=== PATIENT | female | born 1940 | race Caucasian/White ===

== ENCOUNTER 2023-03-16 09:35 | Inpatient (IN) | payer MEDICARE, BC, SELFPAY ==
[2023-03-16] VITALS (13 sets, daily range): BP systolic 98–136; BP diastolic 46–59; PULSE 69–92; RESP 18–94; TEMP 36.6–36.7; O2SAT 2–97; BMI 14.8; BMI 15.4
--- NOTE | 2023-03-16 10:03 | XR_ITS ---
FINAL REPORT CLINICAL HISTORY: Shortness of breath COMPARISON: None FINDINGS: Two views of the chest were obtained. The heart size and pulmonary vascularity are within normal limits. The mediastinum is normal. The lungs are hyperinflated consistent with COPD. There are small pleural effusions. There is no pneumothorax. The bony thorax is intact. IMPRESSION: Hyperinflation of the lungs, consistent with COPD. Small pleural effusions. Reviewed, Interpreted and Dictated by Michael Mccracken III, MD Transcribed by Courtney Bishop Authenticated and [facility]
--- NOTE | 2023-03-16 10:06 | HMH.EDGENADL ---
Discharge Plan Disposition Patient Disposition: Still a Patient Clinical Impressions Clinical Impression: Acute hypoxemic respiratory failure, Hypokalemia, Hypomagnesemia Discharge ED Provider: Malena Vasquez General Adult HPI General Chief complaint: Weakness Stated complaint: low oxygen Time Seen by Provider: 03/16/23 09:38 History of Present Illness HPI narrative: This patient is an 82-year-old female with a history of gastroparesis, recent femoral fracture 3 months ago who [facility], and COPD on 1 L nasal cannula at night presented to the emergency department for evaluation with concern for an episode today in which she dropped her blood pressure. Her daughter reports that she deals with chronically low blood pressure and was supposed to go see a puddler pile driving with [facility] in [place] today for this. She became acutely weak and they checked a pressure, which was 60/30 with a home blood pressure cuff. They also checked her oxygen saturation, which they noted was low. They put her on 2 L nasal cannula and brought her in for evaluation. The patient states that right now, she is feeling at her baseline. She did feel acutely weak and fatigued earlier with this episode, however that has since resolved. Of note, they state that she was suffering from bilateral lower extremity swelling, for which she was put on Lasix. Her daughter notes that she has had a significant amount of urine output and has not been taking in quite as many liquids. She is concerned she may be dehydrated. Patient denies any recent fevers, chills, shortness of breath, chest pain, sore throat, congestion, abdominal pain, nausea, vomiting, changes in bowel movements, rashes, or swelling. She does have issues with chronic cough. Related Data Home Medications Medication Instructions Recorded Confirmed escitalopram oxalate 20 mg tablet 20 mg PO DAILY Mood 03/16/23 03/16/23 furosemide 40 mg tablet 40 mg PO DAILY swelling 03/16/23 03/16/23 hydrocodone 5 mg-acetaminophen 325 1 tab PO NEEDED PRN Pain 03/16/23 03/16/23 mg tablet ibandronate 150 mg tablet 150 mg PO MONTHLY Osteoporosis 03/16/23 03/16/23 levothyroxine 150 mcg tablet 150 mcg PO DAILY thyroid 03/16/23 03/16/23 (Synthroid) midodrine 5 mg tablet 5 mg PO TID High Blood Pressure 03/16/23 03/16/23 mirtazapine 15 mg tablet 15 mg PO HS Mood 03/16/23 03/16/23 ondansetron HCl 4 mg tablet 4 mg PO Q8H Nausea And Vomiting 03/16/23 03/16/23 pantoprazole 40 mg tablet,delayed 40 mg PO BID Acid Reflux 03/16/23 03/16/23 release promethazine 25 mg tablet 25 mg PO NEEDED PRN Nausea And 03/16/23 03/16/23 Vomiting Allergies Allergy/AdvReac Type Severity Reaction Status Date / Time No Known Allergies Allergy Verified 03/16/23 10:08 [facility] Disclaimer: The information contained in this section may have been updated after the patient was seen, as this information can be updated by other users. Social History Smoking Status: Current every day smoker alcohol intake: never current occupational status: employed Travel in the last 8 weeks: None ROS Obtained: Yes All systems reviewed & no additional complaints except as documented Physical Exam General General appearance: alert and in no apparent distress Comment: Thin, frail Head Head exam: atraumatic and normocephalic Eye Eye exam: Present normal appearance, PERRL and EOMI ENT ENT exam: Present normal exam, normal oropharynx, mucous membranes dry and normal external ear exam Neck Neck exam: Present normal inspection, full ROM and trachea midline; Absent tenderness Chest Chest inspection: Present normal inspection and symmetric chest wall rise; Absent tenderness Respiratory Respiratory exam: Present other (Bilateral rhonchi in the bases with scattered wheezing. 87-88% on room air requiring supplemental oxygen with 2 L nasal cannula.); Abse
--- NOTE | 2023-03-16 10:09 | PC.NURSE ---
notified RT of vbg order
[2023-03-16 10:13] LABS: Basophils % 0.2 % (0.1-2.0); Eosinophils # 0.2 K/mm3 (0.0-0.4); Eosinophils % 1.9 % (0.1-12.0); Hematocrit 39.3 % (37.0-47.0); Hemoglobin 12.3 g/dL (12.2-16.2); Lymphocytes # 1.5 K/mm3 (0.7-4.5); Lymphocytes % 15.6 % (10-50); Mean Corpuscular HGB Conc 31.4 g/dL (31.8-35.4); Mean Corpuscular Hemoglobin 29.9 pg (27.0-31.2); Mean Corpuscular Volume 95.3 fl (81-99); Mean Platelet Volume 9.4 fl (7.4-10.4); Monocytes # 0.6 K/mm3 (0.1-1.0); Monocytes % 6.3 % (1.7-9.3); Neutrophils # 7.3 K/mm3 (1.8-7.8); Neutrophils % 76.1 % (37.0-80.0); Platelet Count 306 K/mm3 (142-424); Red Blood Count 4.12 M/mm3 (4.20-5.40); Red Cell Distribution Width 13.6 % (11.5-17.5); White Blood Count 9.6 K/mm3 (4.8-10.8)
--- NOTE | 2023-03-16 10:16 | PC.NURSE ---
PT TO XR
[2023-03-16 10:17] LABS: Alanine Aminotransferase 19 U/L (12-78); Albumin Level 3.6 g/dl (3.5-5.0); Albumin/Globulin Ratio 1.2 (1.1-1.8); Alkaline Phosphatase 99 U/L (38-126); Aspartate Amino Transferase 29 U/L (14-36); Bilirubin,Total 0.6 mg/dl (0.2-1.3); Blood Urea Nitrogen 14 mg/dl (7-17); Calcium 9.2 mg/dl (8.4-10.2); Chloride 98 mmol/L (98-107); Creatinine Clearance Estimated 29 mL/min (50-200); Estimated Glomerular Filt Rate 69 ml/min (>60); GFR (African American) 83 ML/MIN (>60); Glucose 129 mg/dl (74-100); Magnesium 1.4 mg/dl (1.6-2.3); Sodium 146 mmol/L (136-145); Total Protein,Serum 6.6 g/dl (6.3-8.2)
[2023-03-16 10:19] LABS: VBG Base Excess 7.9 mmol/L (-2.4-2.3); VBG HCO3 32.9 mmol/L (23-30); VBG Oxygen Saturation 96.8 % (50-70); VBG PH 7.39 mmol/L (7.31-7.41); VBG PO2 88.6 mmol/L (28-40); VBG Total CO2 34.6 mmol/L (23-27)
[2023-03-16 10:22] LABS: VBG PCO2 55.4 mmol/L (35-51)
[2023-03-16 10:23] LABS: D-Dimer 1.56 ug/mL (0.0-0.5)
[2023-03-16 10:24] LABS: Anion Gap 10.8 mEq/L (5-15); Carbon Dioxide 40 mmol/L (22.0-30.0)
[2023-03-16 10:28] LABS: Potassium 2.8 mmoL/L (3.5-5.1)
[2023-03-16 10:30] LABS: NT Pro Brain Natriuretic Pep. 1910 pg/mL (0-450); Troponin I 0.04 ng/ml (0.00-0.034)
[2023-03-16 10:34] LABS: T4 (Thyroxine) 20.9 ug/dl (5.53-11.0)
--- NOTE | 2023-03-16 10:34 | CT_ITS ---
FINAL REPORT TECHNIQUE: Axial CT images were performed from the lung apices through the upper abdomen. Coronal reformats were submitted. This study was performed with techniques to keep radiation doses as low as reasonably achievable (ALARA). Individualized dose reduction techniques using automated exposure control or adjustment of mA and/or kV according to the patient's size were employed. CLINICAL HISTORY: SOA, elevated d-dimer FINDINGS: There is lack of IV contrast, pulmonary embolism or dissection can not be excluded on this noncontrast exam. There are moderate vascular calcifications. There is no axillary adenopathy. There is no hilar or mediastinal mass or adenopathy. Heart size is normal. There is no pericardial or pleural effusion. No suspicious infiltrate or nodule is identified on lung window images. There is moderate emphysema. Moderate scarring is identified. There are calcified granulomas bilaterally. There is a small left diaphragmatic hernia containing fat. There is a small nonobstructing left renal stone. IMPRESSION: No acute cardiopulmonary process. Reviewed, Interpreted and Dictated by Michael Mccracken III, MD Transcribed by Erika Hendrix Authenticated and [facility]
--- NOTE | 2023-03-16 10:47 | PC.NURSE ---
pt to ct
[2023-03-16 10:48] LABS: Thyroid Stimulating Hormone < 0.02 uIU/mL (0.465-4.68)
[2023-03-16 10:59] LABS: Lactic Acid 1.4 mmol/L (0.7-2.1)
--- NOTE | 2023-03-16 11:00 | PC.NURSE ---
PT RETURNED FROM CT, PRINCIPAL SOFTWARE ENGINEER REPORT IV INFILTRATED.
--- NOTE | 2023-03-16 11:36 | ECG_ITS ---
APPROVED REPORT Exam: Resting ECG HR:71 bpm ECG Measurements Heart Rate 71 AXES IN 139 P 100 QRSd 64 QRS 74 QT 453 T 78 QTc 476 Conclusion SINUS RHYTHM SEPTAL MYOCARDIAL INFARCTION , OF INDETERMINATE AGE [40+ ms Q WAVE IN V1/V2] ABNORMAL ECG UNCONFIRMED REPORT Electronically signed by : Abdi Tang MD 03/17/2023 08:40:44
--- NOTE | 2023-03-16 12:17 | CT_ITS ---
FINAL REPORT CLINICAL HISTORY: elevated d-dimer FINDINGS: Thin section axial CT images of the chest were obtained with contrast. 3D reformatted images were also obtained. This study was performed with techniques to keep radiation doses as low as reasonably achievable (ALARA). Individualized dose reduction techniques using automated exposure control or adjustment of mA and/or kV according to the patient''s size were employed. There is no evidence of pulmonary embolism. There is no evidence of thoracic aortic aneurysm or dissection. There are small mediastinal nodes. There is no evidence of pulmonary mass or nodule. No localized inflammatory process is seen within the lungs. There is moderate emphysema. Mild scarring is noted. Limited images of the upper abdomen are unremarkable. IMPRESSION: No evidence of pulmonary embolism. No mass or localized inflammatory process. Reviewed, Interpreted and Dictated by Michael Mccracken III, MD Transcribed by Erika Hendrix Authenticated and [facility]
--- NOTE | 2023-03-16 12:45 | PC.NURSE ---
PT TO CT
--- NOTE | 2023-03-16 13:27 | PC.NURSE ---
REMA WOLF speaking with hospitalist
[2023-03-16 14:30] LABS: Troponin I 0.04 ng/ml (0.00-0.034)
--- NOTE | 2023-03-16 14:43 | PC.NURSE ---
report called to serge riley on second floor at this time. states will come get pt
--- NOTE | 2023-03-16 14:43 | PC.NURSE ---
received report from Teresa ROJAS
--- NOTE | 2023-03-16 14:52 | EXP.HP ---
History of Present Illness *Admission Date: 03/16/23 *Reason for visit:: hypoxia *History of present illness: Kate David is an 82 year old female with a past medical history of hypothyroidism, chronic hypotension on midodrine, copd on prn albuterol only, cigarette nicotine dependence and a recent femoral fracture 3 months ago. The patient presented to the ED with her daughter Michelle Ji because of low oxygen saturations. Michelle states that over the past few weeks she's had a productive cough and more wheezing than usual. The patient continues to smoke cigarettes, approximately 1 pack a day. No fevers or pain. The patient denies any shortness of breath at rest but does get winded with minimal exertion. [facility] Disclaimer: The information contained in this section may have been updated after the patient was seen, as this information can be updated by other users. Social History (Updated 03/16/23 @ 16:35 by Malena Vasquez DO) Smoking Status: Current every day smoker alcohol intake: never current occupational status: employed Travel in the last 8 weeks: None Review of Systems Review of Systems Review of systems:: pertinent systems reviewed and negative unless documented below Constitutional Constitutional: Reports lethargy *Cardiovascular Cardiovascular: Reports dyspnea on exertion *Respiratory Respiratory: Reports cough (productive), Reports dyspnea on exertion and Reports wheezing *Gastrointestinal Gastrointestinal: Reports other (early satiety) Allergic/Immunologic Allergic/Immunologic: Reports wheezing Meds Home Medications and Allergies Home Medications Medication Instructions Recorded Confirmed Type escitalopram oxalate 20 mg tablet 20 mg PO DAILY Mood 03/16/23 03/16/23 History furosemide 40 mg tablet 40 mg PO DAILY swelling 03/16/23 03/16/23 History hydrocodone 5 mg-acetaminophen 325 1 tab PO NEEDED PRN Pain 03/16/23 03/16/23 History mg tablet ibandronate 150 mg tablet 150 mg PO MONTHLY Osteoporosis 03/16/23 03/16/23 History levothyroxine 150 mcg tablet 150 mcg PO DAILY thyroid 03/16/23 03/16/23 History (Synthroid) midodrine 5 mg tablet 5 mg PO TID High Blood Pressure 03/16/23 03/16/23 History mirtazapine 15 mg tablet 15 mg PO HS Mood 03/16/23 03/16/23 History ondansetron HCl 4 mg tablet 4 mg PO Q8H Nausea And Vomiting 03/16/23 03/16/23 History pantoprazole 40 mg tablet,delayed 40 mg PO BID Acid Reflux 03/16/23 03/16/23 History release promethazine 25 mg tablet 25 mg PO NEEDED PRN Nausea And 03/16/23 03/16/23 History Vomiting New Prescriptions to Start Prescriptions: Allergies Allergy/AdvReac Type Severity Reaction Status Date / Time No Known Allergies Allergy Verified 03/16/23 10:08 Exam Data for Last 24 hours Vital signs and Labs for Last 24 Hours: Temp Pulse Resp BP Pulse Ox O2 Del Method O2 Flow Rate 98.0 F 81 18 136/58 L 94 L Nasal Cannula 2 03/16/23 09:35 03/16/23 14:30 03/16/23 14:30 03/16/23 14:30 03/16/23 14:30 03/16/23 11:00 03/16/23 11:00 Laboratory Results - last 24 hr 03/16/23 09:59: WBC 9.6, RBC 4.12 L, Hgb 12.3, Hct 39.3, MCV 95.3, MCH 29.9, MCHC 31.4 L, RDW 13.6, Plt Count 306, MPV 9.4, Neut % (Auto) 76.1, Lymph % (Auto) 15.6, [place] % (Auto) 6.3, Eos % (Auto) 1.9, Baso % (Auto) 0.2, Neut # (Auto) 7.3, Lymph # (Auto) 1.5, [place] # (Auto) 0.6, Eos # (Auto) 0.2, Baso # (Auto) 0.0, D-Dimer 1.56 H, Sodium 146 H, Potassium 2.8 L*, Chloride 98, Carbon Dioxide 40 H, Anion Gap 10.8, BUN 14, Creatinine 0.80, Estimated Creat Clear 29, Estimated GFR 69, Est GFR ( Amer) 83, Glucose 129 H, Calcium 9.2, Magnesium 1.4 L, Total Bilirubin 0.6, AST 29, ALT 19, Alkaline Phosphatase 99, Troponin I 0.04 H, NT-Pro-B Natriuret Pep 1910 H, Total Protein 6.6, Albumin 3.6, Globulin 3.0, Albumin/Globulin Ratio 1.2, TSH < 0.02 L, Thyroxine (T4) 20.9 H 03/16/23 10:03: VBG pH 7.39, VBG pCO2 55.4 H, VBG pO2 88.6 H, VBG HCO3 32.9 H, VBG Total CO2 34.6 H,
--- NOTE | 2023-03-16 15:17 | HMH.PHAINT1 ---
Pharmacy Intervention Comments: Medication history complete, home medications verified with fill history and list from patient. - Rhina Nuñez, PharmD Candidate 2023
--- NOTE | 2023-03-16 16:32 | PC.NURSE ---
DNR SIGNED AND ON THE CHART. FAMILY PRESENT AT THE TIME. SIGNED BY DR GOMEZ.
[2023-03-16 17:25] LABS: Troponin I 0.03 ng/ml (0.00-0.034)
--- NOTE | 2023-03-16 18:46 | PC.NURSE ---
no pain reported thus far. purwick in place. awaiting urine void and will send to lab when available. pt is incontinent and has been changed as needed. bed in lowest position. call light within reach. vss. no questions or concerns voiced.
[2023-03-17] VITALS (10 sets, daily range): BP systolic 103–130; BP diastolic 45–60; PULSE 70–101; RESP 16–20; TEMP 36.7–37; O2SAT 92–97; BMI 15.3
[2023-03-17 03:31] LABS: Microscopic, Urine URINE MICROSCOPIC (MICROSCOPIC)
[2023-03-17 03:32] LABS: Appearance,Urine CLEAR (Clear); Bilirubin,Urine Negative (Negative); Blood, Urine TRACE-I (Negative); Color,Urine YELLOW (Yellow); Glucose,Urine (UA) Negative (Negative); Ketones,Urine Negative (Negative); Leukocyte Esterase,Urine TRACE (Negative); Nitrate,Urine POSITIVE (Negative); PH,Urine 5.5 (5.0-8.5); Protein,Urine TRACE (Negative)
[2023-03-17 04:08] LABS: Bacteria,Urine 3+ /lpf
[2023-03-17 07:03] LABS: Eosinophils % 0.7 % (0.1-12.0); Hematocrit 36.2 % (37.0-47.0); Hemoglobin 11.2 g/dL (12.2-16.2); Lymphocytes # 0.7 K/mm3 (0.7-4.5); Lymphocytes % 13.6 % (10-50); Mean Corpuscular Hemoglobin 29.9 pg (27.0-31.2); Mean Corpuscular Volume 96.4 fl (81-99); Mean Platelet Volume 9.9 fl (7.4-10.4); Monocytes # 0.2 K/mm3 (0.1-1.0); Monocytes % 3.8 % (1.7-9.3); Neutrophils # 4.4 K/mm3 (1.8-7.8); Neutrophils % 81.8 % (37.0-80.0); Platelet Count 218 K/mm3 (142-424); Red Blood Count 3.75 M/mm3 (4.20-5.40); Red Cell Distribution Width 13.6 % (11.5-17.5); White Blood Count 5.4 K/mm3 (4.8-10.8)
--- NOTE | 2023-03-17 07:34 | EXP.PN ---
Subjective *Date: 03/17/23 *Time: 19:16 Interval history: No dyspnea. She does have a cough but it hasn't been productive. no pain. Exam Data for Last 24 hours Vital signs and Labs for Last 24 Hours: Temp Pulse Resp BP Pulse Ox O2 Del Method O2 Flow Rate 98.0 F 70 18 116/60 92 L Nasal Cannula 2 03/17/23 00:00 03/17/23 06:17 03/17/23 00:00 03/17/23 00:00 03/17/23 06:17 03/17/23 06:39 03/17/23 06:39 Laboratory Results - last 24 hr 03/16/23 09:59: WBC 9.6, RBC 4.12 L, Hgb 12.3, Hct 39.3, MCV 95.3, MCH 29.9, MCHC 31.4 L, RDW 13.6, Plt Count 306, MPV 9.4, Neut % (Auto) 76.1, Lymph % (Auto) 15.6, [place] % (Auto) 6.3, Eos % (Auto) 1.9, Baso % (Auto) 0.2, Neut # (Auto) 7.3, Lymph # (Auto) 1.5, [place] # (Auto) 0.6, Eos # (Auto) 0.2, Baso # (Auto) 0.0, D-Dimer 1.56 H, Sodium 146 H, Potassium 2.8 L*, Chloride 98, Carbon Dioxide 40 H, Anion Gap 10.8, BUN 14, Creatinine 0.80, Estimated Creat Clear 29, Estimated GFR 69, Est GFR ( Amer) 83, Glucose 129 H, Calcium 9.2, Magnesium 1.4 L, Total Bilirubin 0.6, AST 29, ALT 19, Alkaline Phosphatase 99, Troponin I 0.04 H, NT-Pro-B Natriuret Pep 1910 H, Total Protein 6.6, Albumin 3.6, Globulin 3.0, Albumin/Globulin Ratio 1.2, TSH < 0.02 L, Thyroxine (T4) 20.9 H 03/16/23 10:03: VBG pH 7.39, VBG pCO2 55.4 H, VBG pO2 88.6 H, VBG HCO3 32.9 H, VBG Total CO2 34.6 H, VBG O2 Saturation 96.8 H, VBG Base Excess 7.9 H 03/16/23 10:37: Lactate 1.4 03/16/23 13:30: Troponin I 0.04 H 03/16/23 16:50: Troponin I 0.03 03/17/23 01:49: Urine Color Yellow, Urine Appearance Clear, Urine pH 5.5, Ur Specific [place] 1.020, Urine Protein Trace, Urine Glucose (UA) Negative, Urine Ketones Negative, Urine Blood Trace-i, Urine Nitrate Positive, Urine Bilirubin Negative, Urine Urobilinogen 1.0, Ur Leukocyte Esterase Trace, Urine RBC 5-10, Urine WBC 10-20, Ur Squamous Epith Cells 3-5, Urine Bacteria 3+ 03/17/23 06:33: WBC 5.4 D, RBC 3.75 L, Hgb 11.2 L, Hct 36.2 L, MCV 96.4, MCH 29.9, MCHC 31.0 L, RDW 13.6, Plt Count 218 D, MPV 9.9, Neut % (Auto) 81.8 H, Lymph % (Auto) 13.6, [place] % (Auto) 3.8, Eos % (Auto) 0.7, Baso % (Auto) 0.0 L, Neut # (Auto) 4.4, Lymph # (Auto) 0.7, [place] # (Auto) 0.2, Eos # (Auto) 0.0, Baso # (Auto) 0.0 I & O for Last 24 hours: Intake & Output 03/14/23 03/15/23 03/16/23 03/17/23 23:59 23:59 23:59 23:59 Intake Total 570 / 830 260 / 260 Output Total Balance 570 / 830 250 / 250 Weight 43.346 kg Constitutional Constitutional: no acute distress *Routine HEENT Exam Head: Present normocephalic Eye: Present EOMI and PERRL ENT: Present mucous membranes moist *Routine Neck Exam Neck: Present supple; Absent lymphadenopathy *Routine Respiratory Exam Respiratory: Present CTA bilaterally *Routine Cardiovascular Exam Cardiovascular: Present RRR *Routine Abdominal Exam Abdominal: Present soft and normoactive bowel sounds; Absent tenderness *Routine Extremities Exam Extremities: Absent cyanosis, clubbing or edema *Routine Skin Exam Skin: Present warm; Absent rash *Routine Neurological Exam Neurological: Present alert and oriented X3 Assessment and Plan *Assessment and plan (1) Acute hypoxemic respiratory failure: Status: Acute Category: Medical Code(s): J96.01 - Acute respiratory failure with hypoxia (2) Hypomagnesemia: Status: Acute Category: Medical Code(s): E83.42 - Hypomagnesemia (3) Hypokalemia: Status: Acute Category: Medical Code(s): E87.6 - Hypokalemia (4) COPD exacerbation: Status: Acute Category: Medical Code(s): J44.1 - Chronic obstructive pulmonary disease with (acute) exacerbation (5) Hyperthyroidism: Status: Acute Category: Medical Code(s): E05.90 - Thyrotoxicosis, unspecified without thyrotoxic crisis or storm Plan #acute hypoxic respiratory failure #copd exacerbation #chronic gastroparesis #exogenous hyperthyroidism #hypomagnesemia #hypokalemia #elev
[2023-03-17 08:01] LABS: Chloride 103 mmol/L (98-107); Sodium 139 mmol/L (136-145)
[2023-03-17 08:04] LABS: Alanine Aminotransferase 20 U/L (12-78); Albumin Level 3.2 g/dl (3.5-5.0); Albumin/Globulin Ratio 1.1 (1.1-1.8); Alkaline Phosphatase 121 U/L (38-126); Aspartate Amino Transferase 49 U/L (14-36); Bilirubin,Total 0.8 mg/dl (0.2-1.3); Blood Urea Nitrogen 17 mg/dl (7-17); Calcium 9.3 mg/dl (8.4-10.2); Carbon Dioxide 28 mmol/L (22.0-30.0); Creatinine Clearance Estimated 30 mL/min (50-200); Estimated Glomerular Filt Rate 80 ml/min (>60); GFR (African American) 97 ML/MIN (>60); Globulin 2.9 g/dL (1.3-3.2); Glucose 139 mg/dl (74-100); Total Protein,Serum 6.1 g/dl (6.3-8.2)
--- NOTE | 2023-03-17 10:21 | SW/DCPLANNER ---
Addendum entered by Gale Martell 03/20/23 09:49: Patient information/order has been faxed to [facility] to resume home health services. Original Note: PT evaluated this patient and recommended home w/ health services. Patient is currently established with [facility]. I will fax updated information to Sima vanegas/ [facility]. Discharge date is unknown at this time.
--- NOTE | 2023-03-17 10:44 | HMH.PTEV ---
Physical Therapy Evaluation Rehab PT IP Evaluation Start: 03/16/23 18:49 Freq: ONCE Status: Active Protocol: Document 03/17/23 10:35 KATHIA (Rec: 03/17/23 10:44 KATHIA [id number]) Subjective/History History History Pt is a 82 year old female that presented to the ED accompanied by her daughter with reports of low oxygen saturations. Per pt's daughter , pt has been wheezing more than usual and having a productive cough. Pt stated that she does feel winded with minimal exertion. PMH: recent R femur fracture, hypothyroidism, chronic hypotension on midodrine, copd on prn albuterol only, cigarette nicotine dependence Subjective Subjective Pt presents in semi-fowlers position in bed, pleasant and agreeable to PT initial evaluation. Pt denies reports of pain at rest, states she feels pain throughout her R thigh when she tries to move it. Pt reports that she currently lives with her daughter in a [facility] with [address] Pt reports that her daughter has been helping her with B/ IADL's since her recent femur fracture. Pt reports she uses a RW at baseline and had HHPT due to her recent fracture. Pt performed supine to sit on EOB with supervision assistance. Pt performed sit to stand transfer with min A x1 and the use of a RW, pt ambulated x20' within room with the use of a RW and min A . following evaluation, pt left in semi-fowlers position in bed with call light and all needs within reach. Rehab PT IP Eval Objective Appearance Patient Behavior Appropriate,Cooperative Patient Orientation Person,Place,Time,Situation Difficulty following instructions none Speech Pattern Clear,Appropriate Am
--- NOTE | 2023-03-17 15:11 | PC.NURSE ---
PT IS RESTING IN BED WITH FAMILY AT BEDSIDE. ALERT AND ORIENTED X4. EATING AND DRINKING WELL. LUNG SOUNDS HAVE SCATTERED WHEEZES. ABDOMEN SOFT/NON TENDER WITH ACTIVE BOWEL SOUNDS. O2 SATURATION 90-94% ON 2 L NC. NO SWELLING NOTED TO BLE. PURWICK IN PLACE. WILL CONTINUE TO MONITOR.
[2023-03-18] VITALS (7 sets, daily range): BP systolic 123–131; BP diastolic 42–55; PULSE 75–100; RESP 14–17; TEMP 36.9; O2SAT 92–98; BMI 15.6
--- NOTE | 2023-03-18 05:12 | PC.NURSE ---
VITAL SIGNS STABLE/AFEBRILE. NSR ON TELE. NO C/O PAIN. REPORTS SOA WITH EXERTION. URINE DARK YELLOW, PUREWICK IN USE DUE TO POOR MOBILITY. PATIENT SAYS SHE IS GOING HOME THIS AM.
[2023-03-18 07:19] LABS: Basophils % 0.2 % (0.1-2.0); Eosinophils % 0.2 % (0.1-12.0); Hematocrit 32.7 % (37.0-47.0); Hemoglobin 10.4 g/dL (12.2-16.2); Lymphocytes # 1.8 K/mm3 (0.7-4.5); Lymphocytes % 15.8 % (10-50); Mean Corpuscular HGB Conc 31.8 g/dL (31.8-35.4); Mean Corpuscular Hemoglobin 29.9 pg (27.0-31.2); Mean Corpuscular Volume 94.2 fl (81-99); Mean Platelet Volume 9.5 fl (7.4-10.4); Monocytes # 0.8 K/mm3 (0.1-1.0); Neutrophils # 8.8 K/mm3 (1.8-7.8); Neutrophils % 76.9 % (37.0-80.0); Platelet Count 300 K/mm3 (142-424); Red Blood Count 3.47 M/mm3 (4.20-5.40); Red Cell Distribution Width 13.9 % (11.5-17.5); White Blood Count 11.5 K/mm3 (4.8-10.8)
[2023-03-18 07:35] LABS: Chloride 104 mmol/L (98-107)
[2023-03-18 07:36] LABS: Potassium 3.7 mmoL/L (3.5-5.1); Sodium 143 mmol/L (136-145)
[2023-03-18 07:38] LABS: Blood Urea Nitrogen 21 mg/dl (7-17); Creatinine Clearance Estimated 30 mL/min (50-200); Estimated Glomerular Filt Rate 80 ml/min (>60); GFR (African American) 97 ML/MIN (>60)
[2023-03-18 07:39] LABS: Anion Gap 9.7 mEq/L (5-15); Calcium 8.6 mg/dl (8.4-10.2); Carbon Dioxide 33 mmol/L (22.0-30.0); Glucose 98 mg/dl (74-100); Magnesium 1.8 mg/dl (1.6-2.3)
--- NOTE | 2023-03-18 09:21 | EXP.DC.SUM ---
General Admission date:: 03/16/23 Discharge date: 03/18/23 HPI HPI HPI: Kate David is an 82 year old female with a past medical history of hypothyroidism, chronic hypotension on midodrine, copd on prn albuterol only, cigarette nicotine dependence and a recent femoral fracture 3 months ago. The patient presented to the ED with her daughter Michelle Ji because of low oxygen saturations. Michelle states that over the past few weeks she's had a productive cough and more wheezing than usual. The patient continues to smoke cigarettes, approximately 1 pack a day. No fevers or pain. The patient denies any shortness of breath at rest but does get winded with minimal exertion. Hospital Course Hospital Course Hospital Course: #copd exacerbation #possible UTI, urine culture growing >100K GNR #exogenous hyperthyroidism #chronic gastroparesis #hypomagnesemia, resolved #hypokalemia, resolved #elevated troponin, stable #elevated proBNP #cigarette nicotine dependence The patient saturated 86% on RA on day of admission. At her baseline she uses 1 L NC at night only. CTA chest was ordered from the ED because of an elevated d-dimer level of 1.5 and there was no evidence of PE or any acute cardiopulmonary process. I believe her new oxygen requirement was due to COPD exacerbation. She hasn't complained of dyspnea at rest but does get winded with minimal exertion and the patient's daughter states that she has had 2-3 weeks of a productive cough and wheezing. In the ED the patient received solumedrol iv 125mg. She was started prednisone po 40 mg daily, Duonebs q6h, doxycycline and supplemental oxygen. On the day of discharge she was saturating 96% on RA. She is to continue supplemental oxygen at night only. She was prescribed Symbicort and will need to establish care with Pulmonology in one month. She is also to take 4 more days of prednisone and 4 days of omnicef for her copd exacerbation. Her urine culture has a prelim report with >100K GNR. She was given a dose of rocephin on day of discharge and is to take 4 days of omnicef starting tomorrow. The patient has exogenous hyperthyroidism. Her TSH is <0.02 and t4 is 21. I will hold her levothyroxine po 150mg daily. This may be the reason for her chronic early satiety and poor oral intake. She will need to repeat her TSH when she sees her PCP in 1 week. The patient was given magnesium and potassium. troponin levels trended 0.04 - 0.04 -0.03. She never complained of chest pain. Her midodrine was continued for her chronic hypotension She lived alone prior to her hip fracture 3 months ago and most recently has been living with her daughter Michelle Ji. PT recommended d/c to home with HH and 24hr assistance She lives with her daughter and grandson who can provide 24hr assistance. She is to resume HH services for pt/ot/nursing. Exam Data for Last 24 hours Vital signs and Labs for Last 24 Hours: Temp Pulse Resp BP Pulse Ox O2 Del Method O2 Flow Rate 98.4 F 82 16 123/52 L 96 Nasal Cannula 2 03/18/23 07:47 03/18/23 07:47 03/18/23 07:47 03/18/23 07:47 03/18/23 07:47 03/18/23 09:00 03/18/23 09:00 Laboratory Results - last 24 hr 03/17/23 01:49: Urine Color Yellow, Urine Appearance Clear, Urine pH 5.5, Ur Specific [place] 1.020, Urine Protein Trace, Urine Glucose (UA) Negative, Urine Ketones Negative, Urine Blood Trace-i, Urine Nitrate Positive, Urine Bilirubin Negative, Urine Urobilinogen 1.0, Ur Leukocyte Esterase Trace, Urine RBC 5-10, Urine WBC 10-20, Ur Squamous Epith Cells 3-5, Urine Bacteria 3+ 03/18/23 07:02: WBC 11.5 H D, RBC 3.47 L, Hgb 10.4 L, Hct 32.7 L, MCV 94.2, MCH 29.9, MCHC 31.8, RDW 13.9, Plt Count 300 D, MPV 9.5, Neut % (Auto) 76.9, Lymph % (Auto) 15.8, [place] % (Auto) 7.0, Eos % (Auto) 0.2, Baso % (Auto) 0.2, Neut # (Auto) 8.8 H, Lymph # (Auto) 1.8, [place] # (Auto) 0.8, Eos # (Auto) 0.0, Baso # (Auto) 0.0, Sodium 143, Potassium 3.7, Chloride 104, Carbon Dioxide 33 H, Anion G
== END 2023-03-18 13:31 | disposition home health service (06) | DRG 189 ==
LOC: ER 13:36 → 2ND 16:35
PROVIDERS: Nurse Practitioner Family; Admitting Provider Internal Medicine; Emergency Provider Emergency Medicine; PCP Family Medicine; Visit Provider Internal Medicine
DX: J96.01 Acute respiratory failure with hypoxia (principal); J44.1 Chronic obstructive pulmonary disease with (acute) exacerbation; E83.42 Hypomagnesemia; E87.6 Hypokalemia; Z99.81 Dependence on supplemental oxygen; K31.84 Gastroparesis; F17.210 Nicotine dependence, cigarettes, uncomplicated; E05.80 Other thyrotoxicosis without thyrotoxic crisis or storm; I95.89 Other hypotension
CPT/HCPCS: 36415; 71046; 71250; 71275; 80048; 80053; 81001; 82803; 83605; 83735; 83880; 84436; 84443; 84484; 85025; 85378; 87086; 87088; 87186; 93005; 94640; 94761; 97162; 97530; 99291; J0696; J3475; Q9967

== ENCOUNTER → 2023-07-20 12:49 | Outpatient (CLI) | payer MEDICARE, BC, SELFPAY | LOC: RT 12:50 | PROVIDERS: PCP Family Medicine; Visit Provider Internal Medicine Pulmonary Disease | DX: R06.09 Other forms of dyspnea (principal) | CPT/HCPCS: 94060; 94618; 94726; 94729 ==

== ENCOUNTER 2024-11-23 14:56 | Outpatient (CLI) | payer MEDICARE, BC, SELFPAY | END 2024-11-23 23:59 | disposition home or self-care (01) | LOC: LAB 14:58 | PROVIDERS: PCP Family Medicine Hospice and Palliative Medicine; Visit Provider Family Medicine Hospice and Palliative Medicine | DX: K58.9 Irritable bowel syndrome, unspecified (principal) | CPT/HCPCS: 87045 ==